=== PATIENT | female | born 1990 | race American Indian/Alaskan Native ===

== ENCOUNTER 2016-10-20 07:03 | Emergency (ER) | payer OTHER ==
--- NOTE | 2016-10-20 07:44 | ED PDOC ---
Arrival/HPI - General Chief Complaint: Chest Pain Time Seen by Provider: 10/20/16 07:28 Historian: Patient - History of Present Illness Narrative History of Present Illness (Text): 10/20/16 07:23 Caitlin Lira is a 26 year old female who presents to the emergency department complaining of Left leg swelling for a few hours. Patient states her pain worsens with walking and after sitting still for too long. She notes that she also experiences intermittent chest pain for a few days and constant, sharp lower back pain for about one week. Patient denies any falls, trauma, abdominal pain, or any other complaint at this time. Patient endorses that she is undergoing her fourth (11 weeks), she has two children, and had one miscarriage. Time/Duration: 4-6 hours Symptom Onset: Gradual Symptom Course: Unchanged Activities at Onset: Light Context: Home Past Medical History - Provider Review Nursing Documentation Reviewed: Yes - Cardiac Hx Cardiac Disorders: No - Pulmonary Hx Respiratory Disorders: Yes Hx Asthma: Yes - Neurological Hx Neurological Disorder: No - HEENT Hx HEENT Disorder: No - Renal Hx Renal Disorder: No - Endocrine/Metabolic Hx Endocrine Disorders: No - Hematological/Oncological Hx Blood Disorders: No - Integumentary Hx Dermatological Disorder: No - Musculoskeletal/Rheumatological Hx Musculoskeletal Disorders: No - Gastrointestinal Hx Gastrointestinal Disorders: No - Genitourinary/Gynecological Hx Genitourinary Disorders: No - Psychiatric Hx Psychophysiologic Disorder: No Hx Substance Use: No - Surgical History Other/Comment: R sided ovarian cyst removed - Anesthesia Hx Anesthesia: Yes Hx Anesthesia Reactions: No Family/Social History - Physician Review Nursing Documentation Reviewed: Yes Family/Social History: No Known Family HX Smoking Status: Never Smoked Hx Alcohol Use: No Hx Substance Use: No Allergies/Home Meds Allergies/Adverse Reactions: Allergies Penicillins Allergy (Verified 10/20/16 07:12) ITCHING Home Medications: Home Meds Medication Instructions Recorded Confirmed Albuterol HFA [Ventolin HFA 90 1 puff IH QID 10/20/16 10/20/16 mcg/actuation (8 g)] Vit No.126/Iron/Folic 1 tab PO DAILY 10/20/16 10/20/16 [Classic Tablet] Review of Systems - Patients Enrolled in [employer] [X]: A conversation was conducted with the primary medical doctor. - Physician Review All systems were reviewed & negative as marked: Yes - Review of Systems Constitutional: absent: Fevers, Night Sweats Eyes: absent: Vision Changes ENT: absent: Hearing Changes Respiratory: absent: SOB Cardiovascular: Chest Pain Gastrointestinal: absent: Abdominal Pain Genitourinary Female: absent: Dysuria, Urine Output Changes Musculoskeletal: Back Pain, Other (Left leg swelling) Skin: absent: Rash, Pruritis Neurological: absent: Headache, Dizziness Endocrine: absent: Diaphoresis, Polyuria Hemo/Lymphatic: absent: Adenopathy Psychiatric: absent: Depression Physical Exam - Systems Exam Head: Present: Atraumatic, Normocephalic Pupils: Present: PERRL Extroacular Muscles: Present: EOMI Conjunctiva: Present: Normal Mouth: Present: Moist Mucous Membranes Neck: Present: Normal Range of Motion Respiratory/Chest: Present: Other (Reproducible chest pain with palpation) Cardiovascular: Present: Regular Rate and Rhythm, Normal S1, S2. No: Murmurs Abdomen: Present: Normal Bowel Sounds. No: Tenderness, Distention, Peritoneal Signs Back: Present: Paraspinal Tenderness (right paraspinal lumber tenderness) Upper Extremity: Present: Normal Inspection. No: Cyanosis, Edema Lower Extremity: Present: Normal Inspection. No: Edema Neurological: Present: GCS=15, CN II-XII Intact, Speech Normal Skin: Present: Warm, Dry, Normal Color. No: Rashes Psychiatric: Present: Alert, Oriented x 3, Normal Insight, Normal Concentration Medical Decision Making ED Course and Treatment: 10/20/16 07:23 Impression: 26 year old female complaining of left leg swelling for a few hours, intermittent chest pain for a few days, and constant lower back pain for one week. Differential Diagnosis include but are not limited to: Plan: -- Left LE Ultrasound -- Labs -- Acetaminophen -- Reassess and disposition Progress Notes: EKG: Ordered, reviewed, and independently interpreted the EKG. Rate : 93 BPM Rhythm : Sinus rhythm Interpretation : Normal [place], Normal intervals. - Lab Interpretations Lab Results: 10/20/16 07:40 10/20/16 07:40 Lab Results 10/20/16 07:40: Sodium 136, Potassium 3.4 L, Chloride 104, Carbon Dioxide 24, Anion Gap 11, BUN 7, Creatinine 0.5, Est GFR ( Amer) > 60, Est GFR (Non- Af Amer) > 60, Random Glucose 78, Calcium 9.1, Magnesium 1.6 L, Total Bilirubin 0.4, AST 40 H, ALT 92 H, Alkaline Phosphatase 84, Lactate Dehydrogenase 524, Total Creatine Kinase 26 L, Troponin I < 0.01, Total Protein 6.8, Albumin 3.4, Globulin 3.4, Albumin/Globulin Ratio 1.0 L 10/20/16 07:40: WBC 8.1, RBC 3.69, Hgb 11.0 L, Hct 32.2 L, MCV 87.3, MCH 29.8, MCHC 34.2, RDW 12.5, Plt Count 242, MPV 8.6, Gran % 68.1 H, Lymph % (Auto) 21.5 L, [place] % (Auto) 6.6 H, Eos % (Auto) 3.6, Baso % (Auto) 0.2, Gran # 5.54, Lymph # 1.8, [place] # 0.5, Eos # 0.3, Baso # 0.02 I have reviewed the lab results: Yes - RAD Interpretation Radiology Orders: 10/20/16 07:29 DUPLEX LOWER EXTRM VEIN LEFT [US] Stat - Medication Orders Current Medication Orders: Discontinued Medications Acetaminophen (Tylenol 325mg Tab) 975 mg PO STAT STA Stop: 10/20/16 07:31 Last Admin: 10/20/16 07:46 Dose: 975 mg Enoxaparin Sodium (Lovenox) 60 mg SC STAT STA PRN Reason: Protocol Stop: 10/20/16 11:35 Last Admin: 10/20/16 13:09 Dose: 60 mg - Scribe Statement The provider has reviewed the documentation as recorded by the Meena Peralta Provider Scribe Attestation: All medical record entries made by the Marilynibbarrie were at my direction and personally dictated by me. I have reviewed the chart and agree that the record accurately reflects my personal performance of the history, physical exam, medical decision making, and the department course for this patient. I have also personally directed, reviewed, and agree with the discharge instructions and disposition. Disposition/Present on Arrival - Present on Arrival Any Indicators Present on Arrival: No History of DVT/PE: No History of Uncontrolled Diabetes: No Urinary Catheter: No History of Decub. Ulcer: No History Surgical Site Infection Following: None - Disposition Have Diagnosis and Disposition been Completed?: Yes Diagnosis: DVT (deep vein thrombosis) in Disposition: HOME/ ROUTINE Disposition Time: 13:00 Condition: GOOD Prescriptions: Enoxaparin [Lovenox] 60 mg IJ BID #30 syr
[2016-10-20 07:59] LABS: BASO # 0.02 K/mm3 (0.0-2.0); BASO % 0.2 % (0.0-3.0); EOS # 0.3 (0.0-0.7); EOS % 3.6 % (1.5-5.0); GRAN # 5.54 (1.4-6.5); GRAN % 68.1 % (50.0-68.0); LYMPH # 1.8 (1.2-3.4); LYMPH % 21.5 % (22.0-35.0); MEAN CELL VOLUME 87.3 fL (80.0-105.0); MEAN CORPUSCULAR HEMOGLOBIN 29.8 pg (25.0-35.0); MEAN CORPUSCULAR HGB CONC 34.2 g/dl (31.0-37.0); MEAN PLATELET VOLUME 8.6 fl (7.0-11.0); MONO # 0.5 (0.1-0.6); MONO % 6.6 % (1.0-6.0); PLATELET COUNT 242 10^3/uL (120.0-450.0); RBC 3.69 10^6/uL (3.5-6.1); RED CELL DISTRIBUTION WIDTH 12.5 % (11.5-14.5); WHITE BLOOD COUNT 8.1 10^3/ul (4.5-11.0)
[2016-10-20 08:11] LABS: ALBUMIN 3.4 g/dL (3.0-4.8); ALT/SGPT 92 U/L (7-56); AST/SGOT 40 U/L (15-39); BLOOD UREA NITROGEN 7 mg/dL (7-21); CALCIUM 9.1 mg/dL (8.4-10.5); GFR AFRICAN-AMERICAN > 60; GFR NON-AFRICAN AMERICAN > 60; MAGNESIUM 1.6 mg/dL (1.7-2.2)
[2016-10-20 08:26] LABS: TROPONIN I < 0.01 ng/mL
--- NOTE | 2016-10-20 10:15 | US ---
PROCEDURE: Left lower extremity venous US HISTORY: Twelve weeks . Left leg swelling. Evaluate for DVT. PHYSICIAN(S): Deyvi Chahal MD. TECHNIQUE: Duplex sonography and color-flow Doppler with graded compression were used to evaluate the deep venous system of the left lower extremity. FINDINGS: There is acute occlusive thrombus in the left common femoral vein. Interestingly, the left femoral vein, left popliteal vein, and visualized left tibial veins are patent. The superior extent of the thrombus is not determined. IMPRESSION: 1. Acute occlusive thrombus in the left common femoral vein. The superior extent of the thrombus is not determined.
[2016-10-20] MEDS ORDERED: Enoxaparin 60 mg Syringe SC STA (11:34)
--- NOTE | 2016-10-20 20:15 | CARD ---
APPROVED REPORT EKG Measurement Heart [id number] <Conclusion> Normal sinus rhythm Normal ECG
== END 2016-10-22 09:54 | disposition home or self-care (01) ==
LOC: MERGE 07:03 → ED 07:03
DX: O22.31 Deep phlebothrombosis in pregnancy, first trimester (principal); Z3A.11 11 weeks gestation of pregnancy
CPT/HCPCS: 80053; 82550; 83615; 83735; 84484; 85025; 93005; 93971; 96372; 99283; J1650